=== PATIENT | female | born 1985 | race Caucasian/White ===

== ENCOUNTER 2020-11-21 03:42 | Emergency (ER) | payer OTHER ==
[2020-11-21 04:05] VITALS: BP 137/92; PULSE 68; TEMP 98.3
[2020-11-21] MEDS ORDERED: ACETAMINOPHEN 325 MG TABLET (FP) PO ONE (04:13)
[2020-11-21] MEDS ORDERED: LIDOCAINE 5% TOPICAL PATCH TP ONE (04:14)
[2020-11-21] MEDS ORDERED: SUCRALFATE 1 GM TABLET (FP) PO ONE (04:15)
[2020-11-21] MEDS ORDERED: MAG HYDROX/AL HYDROX/SIMETH -MYLANTA- ORAL SUSPENSION PO ONE (04:15)
[2020-11-21] MEDS ORDERED: FAMOTIDINE 20 MG TABLET PO ONE (04:15)
[2020-11-21] MEDS ORDERED: ACETAMINOPHEN 325 MG TABLET (FP) ONE (04:19)
[2020-11-21] MEDS ORDERED: FAMOTIDINE 20 MG TABLET ONE (04:19)
[2020-11-21] MEDS ORDERED: MAG HYDROX/AL HYDROX/SIMETH 30 ML UNIT-DOSE CUP ONE (04:19)
[2020-11-21] MEDS ORDERED: SUCRALFATE 1 GM TABLET (FP) ONE (04:19)
[2020-11-21] MEDS ORDERED: LIDOCAINE 5% TOPICAL PATCH ONE (04:20)
[2020-11-21] MEDS ORDERED: LIDOCAINE PATCH REMOVAL MC ONE (17:00)
== END 2020-11-21 06:54 | disposition home or self-care (01) ==
LOC: JER 03:42
DX: S93.401A Sprain of unspecified ligament of right ankle, initial encounter (principal); R10.13 Epigastric pain; K04.7 Periapical abscess without sinus; W19.XXXA Unspecified fall, initial encounter
CPT/HCPCS: 70450-TC; 73610-TC-RT-FY; 73630-TC-RT-FY; 99284-25